=== PATIENT | male | born 1995 | race Caucasian/White ===

== ENCOUNTER → 2017-04-11 | Outpatient (CLI) | payer BC | END | disposition home or self-care (01) | LOC: NUC 09:26 | DX: M19.071 Primary osteoarthritis, right ankle and foot (principal); D18.00 Hemangioma unspecified site; M95.4 Acquired deformity of chest and rib | CPT/HCPCS: 78315; A9503 ==

== ENCOUNTER 2017-04-22 17:42 | Emergency (ER) | payer BC ==
[~2017-04-22] VITALS: Ht 182.9 cm; Wt 148.9 kg
[2017-04-22 20:49] VITALS: BP 137/91
== END 2017-04-22 20:49 | disposition home or self-care (01) ==
LOC: EME 17:42
PROC: 0HQGXZZ Repair Left Hand Skin, External Approach (ICD-10-PCS; principal; 2017-04-22)
PROC: 3E0234Z Introduction of Serum, Toxoid and Vaccine into Muscle, Percutaneous Approach (ICD-10-PCS; principal; 2017-04-22)
DX: S61.211A Laceration without foreign body of left index finger without damage to nail, initial encounter (principal); W26.0XXA Contact with knife, initial encounter; Z23 Encounter for immunization; Z88.8 Allergy status to other drugs, medicaments and biological substances
CPT/HCPCS: 99281; 99284